=== PATIENT | male | born 1945 | race Caucasian/White ===

== ENCOUNTER 2018-03-31 15:11 | Inpatient (IN) | END 2018-04-02 13:30 | DRG 65 ==

== ENCOUNTER 2018-04-02 14:41 | Inpatient (IN) | END 2018-04-09 13:30 | disposition home health service (06) | DRG 101 ==

== ENCOUNTER 2018-08-29 12:20 | Emergency (ER) | payer MEDICARE, OTHER ==
[~2018-08-29] VITALS: Wt 94.2 kg
[~2018-08-29 12:20] MED LIST: AMLO-147 PO; ASPI-817 PO; ATOR10TA65 PO; DOCU-216 PO; METO-448 PO
[2018-08-29] MEDS ORDERED: METHYLPREDNISOLONE 125 MG INJ IV STA (14:11)
[2018-08-29] MEDS ORDERED: ALBUTEROL 0.5% (NEB) 2.5 MG/0.5 ML AMP INH STA (14:11)
[2018-08-29] MEDS ORDERED: IPRATROPIUM (NEB) 0.5 MG/2.5 ML AMP INH STA (14:11)
--- NOTE | 2018-08-29 14:14 | ERD ---
ER Documentation Chief Complaint Chief Complaint SOB, COUGH, ONSET 10 DAYS, FAMILY STATES PT WITH "FLUID IN LUNGS" HPI This is a 73-year-old male with a past medical history of hypertension, diabetes, chronic kidney disease, previous CVA with no residual deficits who is presenting with progressive worsening shortness of breath and a dry nonproductive but congested cough over the last 10 days. The patient also reports nasal congestion and rhinorrhea over the last several days as well. The patient does not endorse any chest pain, but he does occasionally feel a pressure in his chest, especially when the congestion and coughing is at its worst, typically at night. The patient was in [place] last week, and he was seen at a clinic supported by [facility]. A chest x-ray was completed at that time, and the patient was told that he had fluid on his lungs. The patient presents now for persistent symptoms. The patient was reportedly prescribed cough syrup, but he did not take it as he knew that he was coming back here. The patient denies feeling sick otherwise. The patient denies fever or chills. The patient has had no headache or vision changes. The patient does not endorse neck or back pain. The patient denies lightheadedness or dizziness. The patient denies nausea or vomiting. The patient denies abdominal pain. The patient denies changes to bowel movements or urination. The patient has had no focal deficits. The patient has had no weakness or numbness or tingling to the face or extremities. ROS All systems reviewed and are negative except as per history of present illness. Medications Home Meds Reported Medications Insulin Human Isophan/Regular (HUMULIN (70/30)) Unknown Strength Susp, SC BID INJECT 36 UNITS-QAM AND 18 UNITS-QPM (MED. FROM [facility]) 08/29/18 Insulin Glargine* (Lantus*) 100 Unit/Ml Soln, 0 SC BID, #1 VIAL INJECT 8 UNITS-QAM AND 6 UNITS-QHS 08/29/18 Dutasteride/Tamsulosin HCl (Dutasteride-Tamsulosin 0.5-0.4) 1 Each Cpmp.24hr, 1 EACH PO DAILY, CAP 08/29/18 Gabapentin* (Gabapentin*) 100 Mg Capsule, 100 MG PO DAILY, #90 CAP 08/29/18 Atorvastatin Calcium (Atorvastatin Calcium) 10 Mg Tablet, 10 MG PO QHS, #30 TAB 08/29/18 Losartan Potassium* (Losartan Potassium*) 25 Mg Tablet, 25 MG PO DAILY, TAB 08/29/18 Acetaminophen* (Acetaminophen*) 500 MG Extra Strength Tablet, 500 MG PO Q4H PRN for PAIN AND OR ELEVATED TEMP, TAB 08/29/18 Aspirin* (Aspirin* EC) 81 Mg Tablet.dr, 81 MG PO DAILY, TAB 08/29/18 Discontinued Reported Medications Aspirin* (Aspirin* EC) 81 Mg Tablet.dr, 81 MG PO DAILY, TAB 03/29/18 Discontinued Scripts Docusate Sodium (Dok) 100 Mg Capsule, 100 MG PO Q12H for 30 Days, CAP Prov:[facility]. 03/31/18 Metoprolol Tartrate* (Lopressor*) 25 Mg Tab, 25 MG PO BID for 30 Days, #60 TAB Prov:[facility]. 03/31/18 Atorvastatin (Atorvastatin) 10 Mg Tablet, 80 MG PO DAILY@21 for 30 Days, #30 TAB Prov:[facility]. 03/31/18 Amlodipine Besylate* (Amlodipine Besylate*) 10 Mg Tablet, 10 MG PO DAILY for 30 Days, #30 TAB Prov:[facility]. 03/31/18 Allergies Allergies: Coded Allergies: Penicillins (Verified Allergy, Intermediate, 08/29/18) PMhx/Soc History of Surgery: Yes (cataract sx) Anesthesia Reaction: No Hx Neurological Disorder: Yes (stroke - no residual now) Hx Respiratory Disorders: No Hx Cardiac Disorders: Yes (Hypertension, diabetes) Hx Psychiatric Problems: No Hx Miscellaneous Medical Probl: Yes (Chronic kidney disease) Hx Alcohol Use: No Hx Substance Use: No Hx Tobacco Use: No Smoking Status: Never smoker FmHx Family History: diabetes Physical Exam Vitals Vital Signs Date Temp Pulse Resp B/P (MAP) Pulse Ox O2 O2 Flow FiO2 Time Delivery Rate 08/29/18 77 20 97 21 16:03 08/29/18 Nasal 2 13:37 Cannula 08/29/18 82 18 129/71 98 Room Air 13:23 (90) 08/29/18 97.2 88 18 143/89 98 12:23 (107) Physical Exam Const: No apparent distress, well-developed, well-nourished Head: Normocephalic, Atraumatic Eyes: Normal Conjunctiva. Extraocular movements intact. Pupils equal, round and reactive to light ENT: Normal External Ears, Nose and Mouth. Neck: Full range of motion. No meningismus. Resp: Diffuse end expiratory wheezes. No rales Cardio: Regular rate and rhythm. No murmurs, rubs or gallops Abd: Soft, non tender, non distended. Normal bowel sounds Skin: No petechiae or rashes Back: No midline tenderness. No CVA tenderness Ext: No cyanosis, or edema Neur: Awake and alert, oriented 4. Cranial nerves intact. No facial droop. Normal strength, sensation and coordination. Psych: Normal Mood and Affect Result Diagram: 08/29/18 1333 08/29/18 1333 Results 24 hrs Laboratory Tests Test 08/29/18 13:33 White Blood Count 6.7 10^3/ul Red Blood Count 4.02 10^6/ul Hemoglobin 12.3 g/dl Hematocrit 38.2 % Mean Corpuscular Volume 95.0 fl Mean Corpuscular Hemoglobin 30.6 pg Mean Corpuscular Hemoglobin Concent 32.2 g/dl Red Cell Distribution Width 12.7 % Platelet Count 191 10^3/UL Mean Platelet Volume 10.3 fl Immature Granulocytes % 0.600 % Neutrophils % 52.0 % Lymphocytes % 34.2 % Monocytes % 11.0 % Eosinophils % 1.6 % Basophils % 0.6 % Nucleated Red Blood Cells % 0.0 /100WBC Immature Granulocytes # 0.040 10^3/ul Neutrophils # 3.5 10^3/ul Lymphocytes # 2.3 10^3/ul Monocytes # 0.7 10^3/ul Eosinophils # 0.1 10^3/ul Basophils # 0.0 10^3/ul Nucleated Red Blood Cells # 0.0 10^3/ul Prothrombin Time 13.4 Sec Prothrombin Time Ratio 1.0 INR International Normalized Ratio 1.01 Sodium Level 141 mmol/L Potassium Level 5.0 mmol/L Chloride Level 106 mmol/L Carbon Dioxide Level 24 mmol/L Anion Gap 11 Blood Urea Nitrogen 42 mg/dl Creatinine 2.09 mg/dl Est Glomerular Filtrat Rate mL/min mL/min Glucose Level 220 mg/dl Calcium Level 8.7 mg/dl Troponin I < 0.012 ng/ml B-Type Natriuretic Peptide 389 PG/ML Current Medications Medications Dose Sig/Zeferino Start Time Status Last (Trade) Ordered Route PRN Stop Time Admin Dose Reason Admin Ipratropium 1.5 mg ONCE STAT 08/29/18 DC 08/29/18 [facility] INH 14:11 15:53 (Atrovent 08/29/18 14:18 0.02% (Neb)) Albuterol 15 mg ONCE STAT 08/29/18 DC 08/29/18 (Proventil INH 14:11 15:54 0.5% (Neb)) 08/29/18 14:18 125 mg ONCE STAT 08/29/18 DC 08/29/18 Methylprednis IV 14:11 15:47 olone Sodium 08/29/18 14:18 Succinate (Solu-Medrol) Procedures/MDM MDM The patient's presentation warrants further investigation. Previous medical records, if available, were reviewed. LABS The patient's laboratory testing was obtained and reviewed. No emergent treatment was required unless described below. CBC: No E/o systemic infection or thrombocytopenia. Mild normocytic anemia. Chemistry: No E/o severe acidosis or alkalosis or diabetic ketoacidosis. Elevated creatinine in line with his known chronic kidney disease. PT/INR: No E/o significant coagulopathy Troponin: No E/o acute ischemia BNP: Mildly elevated in an indeterminate range with low clinical suspicion for heart failure EKG EKG read by me: Rate/Rhythm: Regular rate and rhythm at a rate of 80 bpm Intervals: Normal [place]: Normal Impression: No evidence of acute ischemia or arrhythmia IMAGING Imaging and Radiology interpretation reviewed. CXR FINDINGS: The lungs are clear of acute infiltrates, edema, effusions, or masses. Calcific atherosclerosis of the aorta is present.. The cardiomediastinal silhouette is unremarkable. The osseous structures are intact. IMPRESSION: No acute cardiopulmonary disease. Electronically viewed and signed by .Kevin Ahn MD, MD on 08/29/2018 13:42 TREATMENT/DISPOSITION The patient presents with symptoms most consistent with bronchitis. His symptoms have been ongoing for over 10 days. A bacterial process is certainly a possibility, though I do not see any obvious focal pneumonia. The patient was treated with nebulized albuterol and ipratropium in addition to IV Solu-Medrol with significant improvement of his symptoms. The patient's symptoms are not consistent with influenza. I do not see evidence of pneumonia. The patient's chest xray does not reveal pneumonia or pneumothorax or pleural effusions or pulmonary edema. The patient does not have a widened mediastinum and does not have signs or symptoms concerning for thoracic aortic aneurysm or dissection. The patient does not have pneumomediastinum or signs concerning for esophageal tear or rupture. The patient has no clinical or radiographic signs of pericardial effusion or tamponade. The patient does not have pneumoperitoneum and I have decreased suspicion of viscus perforation as possible referred pain. The patient does not have a history of heart failure and I have low suspicion for this. The patient is not tachypneic or hypoxic. The patient is breathing comfortably and without pleuritic pain. The patient is not on hormonal therapy. The patient has no history of clotting or bleeding disorders. The patient has no calf tenderness. The patient has had no hemoptysis. I have decreased suspicion for PE. The patient's troponin and EKG are reassuring. I have low suspicion for acute coronary syndrome. Upon reevaluation of the patient, symptoms have improved. No emergent diagnoses were identified. At this time, I feel that the patient stable for discharge. The patient was instructed to follow-up with a primary care physician in 1-3 days. The patient will be given strict precautions with which to return to the emergency department. Prescriptions: Prednisone, albuterol, azithromycin The patient's blood pressure was elevated at greater than 120/80 while in the emergency department. The patient was otherwise stable with no evidence of hypertensive urgency or emergency. The patient does not require admission for blood pressure control. I have discussed with the patient the risks of hypertension. I have instructed the patient to return to the ER for any new or worsening symptoms including chest pain, shortness of breath, headache, blurred vision, confusion, nausea, vomiting or LOC. I have advised the patient to follow up with the primary care physician for outpatient monitoring and treatment for hypertension in 1-3 days. Disclaimer: Inadvertent spelling and grammatical errors are likely due to EHR/dictation software use and do not reflect on the overall quality of patient care. Note that the electronic time recorded on this note does not necessarily reflect the actual time of the patient encounter. Departure Diagnosis: Primary Impression: Bronchitis Additional Impressions: Cough Chest congestion Wheezing Shortness of breath Normocytic anemia Chronic kidney disease Chronic kidney disease stage: unspecified stage Qualified Codes: N18.9 - Chronic kidney disease, unspecified Condition: Stable Patient Instructions: Cough, Chronic, Uncertain Cause, (Adult), Bronchitis With Wheezing (Adult) Additional Instructions: Thank you for for coming to [facility] for your care today. Please ask your nurse or provider if you have questions about your care today and do not leave until all your questions have been answered. Please use any medications given as directed and follow-up with your doctor (or the doctor you were referred to) in the next 1-3 days. If you do not have a primary care doctor you may follow up at the [facility] or [facility] (listed below). You may also use motrin and tylenol as needed for fever and/or pain unless instructed otherwise by your provider or nurse. Indications for more urgent follow-up have been discussed, but you may return to the Emergency Department at ANY time for any worrisome or worsening symptoms. If you have abdominal pain, please know that no test or exam you received is perfect and you should follow up within 8 hours for continued pain. If you had any imaging studies today, such as an X-Ray or CT Scan, these studies will be reviewed later by a radiologist. You will be called if there are important findings that were not identified today, so make sure the contact information you provided at registration is correct. If you received any narcotic pain control medicine today, such as Vicodin, Morphine or Dilaudid, your coordination and judgment may be affected for a number of hours. Please do not drive or operate heavy machinery, and you may want someone to assist you at home. If you were given a prescription for narcotic medication, be aware that it is very addictive- use sparingly and only if necessary. PLEASE SEEK FURTHER EVALUATION AND MANAGEMENT AT YOUR DOCTORS OFFICE WITHIN THE NEXT 1-3 DAYS. IT IS YOUR RESPONSIBILITY TO MAKE AN APPOINTMENT FOR FOLOW-UP CARE. IF YOU HAVE A PRIMARY DOCTOR, PLEASE CALL THEIR OFFICE TO SCHEDULE AN APPOINTMENT FOR FOLLOW UP. IF YOU DO NOT HAVE A PRIMARY DOCTOR YOU CAN CALL OUR PHYSICIAN REFERRAL HOTLINE AT IF YOU CAN NOT AFFORD TO SEE A PHYSICIAN YOU CAN CHOSE FROM THE FOLLOWING [facility] CLINICS: [facility] [address] [facility] [address] [facility]. [facility] [address] [facility] [address] [facility] [address] [facility]. [facility]. [address] MARSHAL SMITH MD Aug 29, 2018 14:07
[2018-08-29] MEDS ORDERED: ASPI-817 PO (14:28)
[2018-08-29] MEDS ORDERED: ACET-141 PO (14:29)
[2018-08-29] MEDS ORDERED: LOSA25TA12 PO (14:29)
[2018-08-29] MEDS ORDERED: GABA100C14 PO (14:30)
[2018-08-29] MEDS ORDERED: ATOR10TA65 PO (14:30)
[2018-08-29] MEDS ORDERED: DUTA1CPM4 PO (14:31)
[2018-08-29] MEDS ORDERED: LANT3I SC (14:33)
[2018-08-29] MEDS ORDERED: NOV70303I SC (14:40)
[2018-08-29] MEDS ORDERED: AZIT250T PO (17:09)
[2018-08-29] MEDS ORDERED: ALBU18HF INHALATION (17:09)
[2018-08-29] MEDS ORDERED: PRED20TA PO (17:09)
[2018-08-29 17:18] VITALS: BP 152/70; PULSE 86; RESP 18
== END 2018-08-29 17:19 | disposition home or self-care (01) ==
LOC: E/R 12:20
DX: J40 Bronchitis, not specified as acute or chronic (principal); D64.9 Anemia, unspecified; I12.9 Hypertensive chronic kidney disease with stage 1 through stage 4 chronic kidney disease, or unspecified chronic kidney disease; N18.9 Chronic kidney disease, unspecified; E11.22 Type 2 diabetes mellitus with diabetic chronic kidney disease; Z79.4 Long term (current) use of insulin; Z79.82 Long term (current) use of aspirin; Z86.73 Personal history of transient ischemic attack (TIA), and cerebral infarction without residual deficits
CPT/HCPCS: 36415; 71045; 80048; 83880; 84484; 85025; 85610; 93005; 94644; 96374; 99285; J2930; 94640